=== PATIENT | male | born 1970 | race Caucasian/White ===

== ENCOUNTER → 2017-03-02 | Outpatient (CLI) | payer OTHER ==
[~2017-03-02] MED LIST: MONT10TA9 PO; MULT-412 PO; OMEP40CA6 PO
== END | disposition home or self-care (01) ==
LOC: CFH 10:22
PROVIDERS: ATTEND Surgery
DX: K80.20 Calculus of gallbladder without cholecystitis without obstruction (principal); K76.0 Fatty (change of) liver, not elsewhere classified
CPT/HCPCS: 76700

== ENCOUNTER → 2017-03-10 | Outpatient (CLI) | payer OTHER | END | disposition home or self-care (01) | LOC: STAR 15:13 | PROVIDERS: ATTEND Surgery | DX: Z02.9 Encounter for administrative examinations, unspecified (principal) ==

== ENCOUNTER 2017-03-15 12:28 | Day surgery (SDC) | payer OTHER ==
[~2017-03-15] VITALS: Ht 190.5 cm; Wt 144.5 kg
[~2017-03-15 12:28] MED LIST changes: +BUPIVACAINE/PF-EPI 0.25% 1:200K ONE
[2017-03-15] MEDS ORDERED: LACTATED RINGERS 1,000 ML IV SCH (12:47)
[2017-03-15 13:14] VITALS: BP 129/89
[2017-03-15] MEDS ORDERED: FENTANYL PF 250 MCG/5ML ONE (14:12)
[2017-03-15] MEDS ORDERED: DEXAMETHASONE 4 MG/ML, 1ML ONE (14:55)
[2017-03-15] MEDS ORDERED: METOCLOPRAMIDE 5 MG/ML, 2ML ONE (14:55)
[2017-03-15] MEDS ORDERED: NEOSTIGMINE 1 MG/ML, 10ML ONE (14:55)
[2017-03-15] MEDS ORDERED: CEFAZOLIN 1,000 MG ONE (14:55)
[2017-03-15] MEDS ORDERED: ONDANSETRON 2MG/ML, 2ML ONE (14:55)
[2017-03-15] MEDS ORDERED: ROCURONIUM 10 MG/ML ONE (14:55)
[2017-03-15] MEDS ORDERED: KETOROLAC 30 MG/1 ML ONE (14:55)
[2017-03-15] MEDS ORDERED: PROPOFOL 10 MG/ML, 20ML ONE (14:55)
[2017-03-15] MEDS ORDERED: GLYCOPYRROLATE 0.2MG/1ML ONE (14:55)
[2017-03-15] MEDS ORDERED: PROMETHAZINE 25 MG/ML, 1ML IV PRN (15:30)
[2017-03-15] MEDS ORDERED: MEPERIDINE/PF 25MG/0.5ML IVPush PRN (15:30)
[2017-03-15] MEDS ORDERED: HYDROmorphone 1 MG/ML, 1ML IV PRN (15:30)
[2017-03-15] MEDS ORDERED: LABETALOL 5MG/ML, 20ML IV PRN (15:30)
[2017-03-15] MEDS ORDERED: hydrALAzine 20 MG/ML, 1ML IV PRN (15:30)
[2017-03-15] MEDS ORDERED: OXYcodone 5 MG/5 ML ORAL.SOL UDC PO PRN (15:30)
[2017-03-15] MEDS ORDERED: ONDANSETRON 2MG/ML, 2ML IVPush PRN (15:30)
[2017-03-15] MEDS ORDERED: MIDAZOLAM 1 MG/ML, 2ML IV PRN (15:30)
[2017-03-15] MEDS ORDERED: OXYcodone 5 MG/5 ML ORAL.SOL UDC ONE (15:51)
[2017-03-15] MEDS ORDERED: MEPERIDINE/PF 25MG/0.5ML ONE (15:51)
[2017-03-15] MEDS ORDERED: FENTANYL PF 100 MCG/2ML ONE (16:08)
[2017-03-15] MEDS: FENTANYL PF 100 MCG/2ML IV PRN ×2 (16:10→16:16)
== END 2017-03-15 19:15 | disposition home or self-care (01) ==
LOC: OUT 12:28
PROVIDERS: ATTEND Surgery
DX: K80.20 Calculus of gallbladder without cholecystitis without obstruction (principal)
CPT/HCPCS: 47562; 88304; J2175; J3010; J7120; J0690; J1100; J1885; J2405; J2704; J2710; J3490; J2765

== ENCOUNTER → 2020-03-24 | Outpatient (CLI) | payer OTHER ==
[~2020-03-24] MED LIST changes: -BUPIVACAINE/PF-EPI 0.25% 1:200K ONE; +MONT10TA11 PO; -MONT10TA9 PO; +OMEP40CA42 PO; -OMEP40CA6 PO
== END | disposition home or self-care (01) ==
LOC: RAD 12:28
PROVIDERS: ATTEND Internal Medicine Gastroenterology
DX: K57.32 Diverticulitis of large intestine without perforation or abscess without bleeding (principal); K21.9 Gastro-esophageal reflux disease without esophagitis; R13.19 Other dysphagia
CPT/HCPCS: 74220